=== PATIENT | female | born 1940 | race African-American/Black ===

== ENCOUNTER 2017-10-02 19:40 | Emergency (ER) | payer OTHER ==
[2017-10-02 19:48] VITALS: TEMP 98.6; BMI 32.3
--- NOTE | 2017-10-02 21:56 | PDOC ---
Attending Attestation - Resident Resident Name: Ayaz Atkinson - ED Attending Attestation I have performed the following: I have examined & evaluated the patient, The case was reviewed & discussed with the resident, I agree w/resident's findings & plan - HPI HPI: 10/03/17 01:40 Pt comes with diarrhea x 4 today and decreased oral intake and weak and dizzy. Pt has no fever, just chills. This is likely due to a viral gastroenteritis. - Physicial Exam PE: 10/03/17 19:40 Agree with resident. - Medical Decision Making 10/03/17 01:41 Pt received 500 ML NSS and she is feeling better. Labs are normal. Pt is stable for discharge home.
--- NOTE | 2017-10-02 21:58 | PDOC ---
History of Present Illness - General Chief Complaint: Nausea/Vomiting Stated Complaint: NASUEA/DIARRHEA Time Seen by Provider: 10/02/17 21:36 - History of Present Illness Initial Comments: 10/02/17 21:53 Pt is a 77F w/ PMH HTN, HLD, OA who presents to ED with nausea, vomiting, diarrhea since 2pm today. Pt has had 3 bouts of watery diarrhea, and 3 episodes of NBNB vomiting. Pt has not felt feverish at home. Several family members have had similar symptoms over the past few days. Denies headache, cp, sob, abd pain, recent travel, unusal food consumption. Past History - Past Medical History Allergies/Adverse Reactions: Allergies Allergy/AdvReac Type Severity Reaction Status Date / Time No Known Allergies Allergy Verified 10/02/17 19:46 Home Medications: Ambulatory Orders Unobtainable [Unobtainable] 10/02/17 COPD: No HTN: Yes Hypercholesterolemia: Yes - Suicide/Smoking/Psychosocial Hx Smoking History: Never smoked *Physical Exam - Vital Signs Last Vital Signs Temp Pulse Resp BP Pulse Ox 98.6 F 73 18 163/71 99 10/02/17 19:46 10/02/17 19:46 10/02/17 19:46 10/02/17 19:46 10/02/17 19:46 ED Treatment Course - LABORATORY CBC & Chemistry Diagram: 10/02/17 23:15 10/02/17 23:15 Medical Decision Making - Medical Decision Making 10/02/17 21:59 Pt is a 77 F w/ PMH HTN, HLD, OA who presents with nausea, vomiting, and diarrhea with family members having had similar symptoms over the past few days. Likely dx viral gastritis. Will r/o atypical presentation of ACS. -CBC -CMP -EKG -Trop 10/03/17 00:44 -500 NS *DC/Admit/Observation/Transfer Diagnosis at time of Disposition: Gastroenteritis - Discharge Dispostion Disposition: HOME Admit: No - Referrals Referrals: Sangeetha Garner [Primary Care Provider] - - Patient Instructions Additional Instructions: Please take all your prescription medications as directed. Please follow up with your primary care doctor within 1 week. If you develop new symptoms or if your symptoms get worse, please return to the Emergency Department. - Post Discharge Activity
[2017-10-02 23:32] LABS: BASO % 0.5 % (0-2.0); EOS % 0.5 % (0-4.5); HEMATOCRIT 38.9 % (32.4-45.2); HEMOGLOBIN 12.4 GM/dL (10.7-15.3); LYMPH % 8.4 % (8-40); MCH 28.3 pg (25.7-33.7); MEAN CELL VOLUME 88.5 fl (80-96); MEAN PLT VOLUME 9.1 fl (7.5-11.1); MONO % 4.3 % (3.8-10.2); NEUT % 86.3 % (42.8-82.8); PLATELET COUNT 304 K/MM3 (134-434); RBC 4.39 M/mm3 (3.60-5.2); RDW 13.8 % (11.6-15.6)
[2017-10-03 00:13] LABS: ALBUMIN 3.9 g/dl (3.4-5.0); ANION GAP 7 (8-16); BILIRUBIN,TOTAL 0.4 mg/dL (0.2-1.0); BLOOD UREA NITROGEN 17 mg/dL (7-18); CALCIUM 9.8 mg/dL (8.5-10.1); CHLORIDE 105 mmol/L (98-107); CO2 29 mmol/L (21-32); CREATININE 0.9 mg/dL (0.55-1.02); GLUCOSE,RANDOM 125 mg/dL (74-106); SGPT/ALT 14 U/L (12-78); SODIUM 141 mmol/L (136-145); TOT PROT 8.1 g/dl (6.4-8.2)
[2017-10-03 00:14] LABS: ALK PHOS 149 U/L (45-117)
[2017-10-03 00:15] LABS: POTASSIUM 4.6 mmol/L (3.5-5.1); SGOT/AST 20 U/L (15-37)
[2017-10-03] MEDS ORDERED: SODIUM CHLORIDE 500 ML IV STA (00:43)
[2017-10-03] MEDS ORDERED: SODIUM CHLORIDE 0.9% 1000 ML INFUS.BAG IV ONE (00:49)
[2017-10-03 02:14] VITALS: BP 151/70; PULSE 70
--- NOTE | 2017-10-03 13:26 | EKG ---
Test Reason : Blood Pressure : / mmHG Vent. Rate : 088 BPM Atrial Rate : 088 BPM P-R Int : 174 ms QRS Dur : 078 ms QT Int : 402 ms P-R-T Axes : 075 040 040 degrees QTc Int : 486 ms SINUS RHYTHM WITH PREMATURE SUPRAVENTRICULAR COMPLEXES NO PREVIOUS ECGS AVAILABLE Confirmed by DENIZ MICHELLE MD ([id number]) on 10/03/2017 1:25:57 PM Referred By: Confirmed By:DENIZ MICHELLE MD
== END 2017-10-03 01:57 | disposition home or self-care (01) ==
LOC: JER 19:40
PROC: 3E0337Z Introduction of Electrolytic and Water Balance Substance into Peripheral Vein, Percutaneous Approach (ICD-10-PCS; principal; 2017-10-02)
DX: K52.9 Noninfective gastroenteritis and colitis, unspecified (principal); I10 Essential (primary) hypertension; E78.00 Pure hypercholesterolemia, unspecified
CPT/HCPCS: 36415; 80053; 82550; 84484; 85025; 93005; 93010; 96360; 99283-25